=== PATIENT | female | born 1985 | race Native Hawaiian/Other Pacific Islander ===

== ENCOUNTER 2018-06-30 15:14 | Inpatient (IN) | payer OTHER ==
[~2018-06-30] VITALS: Ht 152.5 cm; Wt 73.6 kg
[2018-07-15] VITALS (39 sets, daily range): BP systolic 112–152; BP diastolic 59–93; PULSE 54–115; TEMP 98–98.4
--- NOTE | 2018-07-15 13:15 | NUR ---
PAtient to unit with spouse, into room and orientated. Patient placed on monitors, consents signed, IV started in left forearm, with blood obtained and fluids infusing. Patient tolerated well. Questions encouraged and answered. Pitocin started per protocol. Will continue to monitor.
[2018-07-15 13:59] LABS: BASO # 0.1 (0.0-0.2); BASO % 0.4 % (0.0-2.0); EOS # 0.1 (0.0-0.7); EOS % 0.4 % (0-4.0); GRAN # 8.5 (1.4-6.5); GRAN % 73.2 % (42.2-75.2); HEMATOCRIT 35.1 % (37.0-47.0); HEMOGLOBIN 11.5 g/dl (12.5-16.0); LYMPH % 17.1 % (20.0-51.0); MEAN CELL VOLUME 85 fl (80.0-100.0); MEAN CORPUSCULAR HEMOGLOBIN 28 pg (27.0-31.0); MEAN CORPUSCULAR HGB CONC 33 g/dl (33.0-37.0); MEAN PLATELET VOLUME 11.9 fl (7.4-10.4); MONO # 0.9 (0.1-0.6); MONO % 7.9 % (1.7-9.3); PLATELET COUNT 251 K/mm3 (130-400); RED BLOOD COUNT 4.13 M/mm3 (4.10-5.30); REDCELL DISTRIBUTION WIDTH-CV 15.4 % (11.5-14.5)
--- NOTE | 2018-07-15 14:09 | NUR ---
updated on patient status, and pitocin. Dr. Ash reviews FHR strip. No concerns at this time. Continue with plan of care
--- NOTE | 2018-07-15 15:15 | NUR ---
at patient bedside discuss plan of care, reviews FHR strip. Encouraged questions and answered
--- NOTE | 2018-07-15 19:19 | NUR ---
Dr. Painter reviews FHR strip, discuss plan of care. Continue to monitor.
--- NOTE | 2018-07-15 19:55 | NUR ---
Patient report turned off to Miriam JUSTIN for continuation of care.
--- NOTE | 2018-07-15 20:10 | NUR ---
1955 - Pt requesting epidural at this time. Fluid bolus started. Abel Oconnell CRNA notified, will come to hospital 2009 - LULU Davies at bedside. Epidural procedure, risks, and benefits reviewed with patient, pt and spouse verbalized understanding. 2014 - Pt positioned to sitting on edge of bed. Positioning discussed with patient. Spouse supportive at bedside. 2022 - Test dose by LULU Davies, pt denies adverse effects 2029 - Pt repositioned to wedge right. Safety precautions reviewed with patient and spouse.
--- NOTE | 2018-07-15 21:10 | NUR ---
Shoemaker placed to dependent drainage. Blood tinged urine returned. Shoemaker secured to leg with statlock. SVE 2-3/90/-2. Pt tolerated procedure well. Plan of care reviewed with patient and spouse.
--- NOTE | 2018-07-15 21:15 | NUR ---
[id number] Broken FHR tracing, much movement audible. Pt repositioned to wedge left.
--- NOTE | 2018-07-15 21:45 | NUR ---
2144 - Artificial rupture of membranes by Dr. Painter, small amount of bloody fluid returned. SVE 2-3/90/-2. Intermittent late decelerations noted from 4276-4380, pitocin decreased to 10 mL/hr per Dr. Painter.
--- NOTE | 2018-07-15 21:52 | NUR ---
2151 - Recurrent late decelerations down to 130 bpm with spontaneous return to baseline. Dr. Painter remains on unit reviewing FHR tracing. Ephedrine given per Dr. Painter. 2nd bag of LR hung, fluid bolus initiated.
--- NOTE | 2018-07-15 22:06 | NUR ---
2206 - pitocin off per Dr. Painter. Pt repositioned to [place].
--- NOTE | 2018-07-15 22:20 | NUR ---
1050-2897 minimal variability and tachycardia at [address] Painter remains on unit reviewing strip.
--- NOTE | 2018-07-15 22:45 | NUR ---
2244 - Recurrent late decelerations down to 150 bpm with spontaneous return to baseline since 2229. Dr. Painter at bedside, SVE /-2. Dr. Painter discussing possibility of section with patient.
--- NOTE | 2018-07-15 23:00 | NUR ---
230 - tachycardia remains. Mother afebrile and fluid bolus given. Dr. Painter with decision to proceed with section. Keke, TEACHER COUNSELOR notified. multimedia technician notified. Dr. Painter notified Dr. Ash. 2304 - Dr. Painter at bedside discussing section with patient and spouse, questions answered. 2309 - Keke at bedside. Shoemaker catheter drained 550 blood tinged urine out. 2312 - Incision site clipped, hibiclens to abdomen. 2315 - Monitors removed and pt transferred to OR by labor bed.
--- NOTE | 2018-07-15 23:20 | NUR ---
FHT in OR 170s. Ok by Dr. Painter to remove monitors to prep patient.
[2018-07-16] VITALS (18 sets, daily range): BP systolic 104–140; BP diastolic 60–93; PULSE 76–108; TEMP 97.6–98
--- NOTE | 2018-07-16 08:00 | NUR ---
PATIENT UP TO BATHROOM AT THIS TIME. PANIAGUA REMOVED. DOES NOT HAVE URGE TO URINATE AT THIS TIME. ENCOURAGED FLUID INTAKE PO.
--- NOTE | 2018-07-16 12:31 | NUR ---
stopped by and offered congrats to parents.
[2018-07-17 07:45] VITALS: BP 105/82; PULSE 76; TEMP 97.9
[2018-07-17] MEDS ORDERED: PERCOCET 325 MG1 TA2 PO (09:16)
[2018-07-17] MEDS ORDERED: IBU600 MG PO (09:16)
--- NOTE | 2018-07-17 12:00 | NUR ---
PATIENT SHOWERED, REMOVED DRESSING, AMBULATED HALLS. TOLERATED WELL. INCISION WNL, EDGES WELL APPROXIMATED, NO REDNESS, DRAINAGE, OR EDEMA NOTED. INSTRUCTED ON CARE AND FOR SIGNS AND SYMPTOMS OF INFECTION. PATIENTS STATE UNDERSTANDING.
[2018-07-17 17:00] VITALS: BP 123/73; PULSE 72; TEMP 98.7
[2018-07-17 22:00] VITALS: BP 132/76; PULSE 79; TEMP 98
[2018-07-18 08:48] VITALS: BP 118/81; PULSE 68; TEMP 97.5
[2018-07-18 16:06] VITALS: BP 128/86; PULSE 74; TEMP 98
== END 2018-07-18 18:45 | disposition home or self-care (01) | DRG 787 ==
LOC: EDSTATUS 07-14 11:47 → LDRO 07-14 15:14 → OB 07-15 11:48 → LDR 07-15 13:00 → OB 07-16 01:00
PROVIDERS: ADMIT Obstetrics & Gynecology
PROC: 10D00Z1 Extraction of Products of Conception, Low, Open Approach (ICD-10-PCS; principal; 2018-07-15)
PROC: 3E033VJ Introduction of Other Hormone into Peripheral Vein, Percutaneous Approach (ICD-10-PCS; 2018-07-15)
PROC: 10907ZC Drainage of Amniotic Fluid, Therapeutic from Products of Conception, Via Natural or Artificial Opening (ICD-10-PCS; 2018-07-15)
DX: O76 Abnormality in fetal heart rate and rhythm complicating labor and delivery (principal); O41.03X0 Oligohydramnios, third trimester, not applicable or unspecified; Z3A.40 40 weeks gestation of pregnancy; Z37.0 Single live birth
CPT/HCPCS: J0690; J2210; J2270; J2405; J2590; J7120